=== PATIENT | male | born 1955 | race Caucasian/White ===

== ENCOUNTER 2018-05-21 08:16 | Outpatient (CLI) | payer OTHER | END 2018-05-21 08:35 | disposition home or self-care (01) | LOC: SONOGRAMA 08:16 | DX: R74.8 Abnormal levels of other serum enzymes (principal) ==

== ENCOUNTER 2018-08-18 09:02 | Emergency (ER) | payer OTHER ==
[~2018-08-18] VITALS: Ht 175.3 cm; Wt 83.9 kg
== END 2018-08-18 12:31 | disposition home or self-care (01) ==
LOC: ER 09:02
DX: B00.2 Herpesviral gingivostomatitis and pharyngotonsillitis (principal)

== ENCOUNTER 2022-06-06 13:03 | Outpatient (CLI) | payer OTHER | END 2022-06-06 13:05 | disposition home or self-care (01) | LOC: NUCLEAR 13:03 | PROVIDERS: ATTEND Specialist | DX: M81.0 Age-related osteoporosis without current pathological fracture (principal) ==

== ENCOUNTER 2023-08-25 09:40 | Outpatient (CLI) | payer OTHER | END 2023-08-25 09:57 | disposition home or self-care (01) | LOC: SONOGRAMA 09:40 | DX: M25.512 Pain in left shoulder (principal) ==